=== PATIENT | female | born 1970 | race African-American/Black ===

== ENCOUNTER 2017-03-02 14:20 | Observation (INO) ==
[2017-03-02 16:29] LABS: Basophils % 0.7 % (0.0-0.8); Eosinophils # 0.2 10*3/uL (0.0-0.87); Hematocrit 27.6 VOL% (35.7-47.0); Immature Granulocytes % 0.2 %; Immature Granulocytes Absolute 0.01 #; Lymphocytes # 2.1 10*3/uL (1.4-4.0); Lymphocytes % 34.4 % (21.3-54.2); Mean Corpuscular Hemoglobin 18 PG (27-34); Mean Corpuscular Volume 63.2 FL (87-102); Mean Platelet Volume 10.1 FL (9.6-12.0); Monocytes # 0.3 10*3/uL (0.11-0.8); Monocytes % 5.2 % (1.7-12.7); Neutrophils # 3.4 10*3/uL (1.4-7.4); Neutrophils % 56.5 % (38.7-73.9); Platelet Count 267 T/CUMM (130-400); Red Blood Count 4.37 MC/CUMM (3.8-5.5); Red Cell Distribution Width 22.1 % (9.3-17.3)
[2017-03-02 16:38] LABS: PT Patient Result 10.5 SECS
[2017-03-02 16:53] LABS: Albumin 3.9 G/DL (3.4-5.0); Bilirubin,Total 0.5 MG/DL (0.2-1.0); Calcium 7.3 MG/DL (8.5-10.1); Osmolality,Calculated 269.8 MOS/KG (273-304); Potassium 3.2 MMOL/L (3.5-5.1); Total Protein 8.6 G/DL (6.4-8.3)
[2017-03-02 17:16] LABS: Apearance,Urine CLEAR (Clear); Bilirubin,Urine Negative (Negative); Blood, Urine Negative (Negative); Glucose,Urine (UA) Negative (Negative); Hyaline Casts,Urine 1 /LPF (0-3); Ketones,Urine Negative (Negative); Mucus,Urine Many /LPF (Occasional); Nitrite,Urine Negative (Negative); Protein,Urine Negative; RBC,Urine 3 /HPF (0-4); Squamous Epithelial Cell,Urine Occasional /HPF (0-10); Urine Color Yellow (Yellow); Urine Specific Gravity 1.018 (1.001-1.035); WBC,Urine 1 /HPF (0-6)
[2017-03-02] MEDS ORDERED: SODIUM CHLORIDE 0.9% 1,000 ML IV STA (17:39)
[2017-03-02 17:47] LABS: Barbiturates Screen,Urine Negative (Negative); Benzodiazepines Screen,Urine Negative (Negative); Cannabinoid Screen,Urine Negative (Negative); Opiate Screen,Urine Negative (Negative); Phencyclidine Screen,Urine Negative (Negative)
[2017-03-02] MEDS ORDERED: ESTROGENS(CONJ) 25 MG VIAL IV ONE (19:15)
[2017-03-02] MEDS: SODIUM CHLOR 0.9% KCL 20 MEQ 20 MEQ/1,000 ML BAG IV SCH (23:36)
[2017-03-03] MEDS ORDERED: SODIUM CHLORIDE 0.9% 1,000 ML IV PRN (00:57)
[2017-03-03 03:51] LABS: PT Patient Result 10.3 SECS; Partial Thromboplastin Time 26.5 SECS (0-40)
[2017-03-03] MEDS ORDERED: ESTROGENS(CONJ) 25 MG VIAL IM ONE (08:00)
[2017-03-03 08:12] LABS: Basophils % 0.6 % (0.0-0.8); Eosinophils # 0.3 10*3/uL (0.0-0.87); Eosinophils % 3.7 % (0.00-10.9); Hematocrit 21.6 VOL% (35.7-47.0); Immature Granulocytes % 0.1 %; Immature Granulocytes Absolute 0.01 #; Lymphocytes # 2.7 10*3/uL (1.4-4.0); Lymphocytes % 40.3 % (21.3-54.2); Mean Corpuscular HGB Conc 28.2 GM/DL (32-36); Mean Corpuscular Hemoglobin 18 PG (27-34); Mean Corpuscular Volume 64.5 FL (87-102); Mean Platelet Volume 10.6 FL (9.6-12.0); Monocytes # 0.3 10*3/uL (0.11-0.8); Neutrophils # 3.4 10*3/uL (1.4-7.4); Neutrophils % 50.3 % (38.7-73.9); Platelet Count 233 T/CUMM (130-400); Red Blood Count 3.35 MC/CUMM (3.8-5.5); Red Cell Distribution Width 21.8 % (9.3-17.3); White Blood Count 6.8 T/CUMM (4-12)
[2017-03-03 08:18] LABS: Hemoglobin 6.1 GM/DL (12.0-16.0)
[2017-03-03] MEDS: SODIUM CHLOR 0.9% KCL 20 MEQ 20 MEQ/1,000 ML BAG IV SCH (08:32)
[2017-03-03 08:43] LABS: Alanine Aminotransferase 9 U/L (13-56); Alkaline Phosphatase 32 U/L (45-117); Aspartate Amino Transferase 16 U/L (0-37); Bilirubin,Total < 0.39 MG/DL (0.2-1.0); Blood Urea Nitrogen 6 MG/DL (7-18); Calcium 6.3 MG/DL (8.5-10.1); Glucose 75 MG/DL (74-106); Osmolality,Calculated 275.4 MOS/KG (273-304); Potassium 3.7 MMOL/L (3.5-5.1); Sodium 140 MMOL/L (136-145); Total Protein 6.5 G/DL (6.4-8.3)
[2017-03-03 11:49] LABS: Hypochromasia 2+; Microcytosis 2+; Platelet Estimate Adequate; Polychromasia 1+; Spherocytes Few; Target Cells 1+
[2017-03-03] MEDS: POTASSIUM CHLORIDE 20 MEQ/15 ML UDCUP PO SCH (12:53)
[2017-03-04] MEDS: SODIUM CHLOR 0.9% KCL 20 MEQ 20 MEQ/1,000 ML BAG IV SCH ×3 (04:31→14:29)
[2017-03-04 06:49] LABS: Hematocrit 31.9 VOL% (35.7-47.0)
[2017-03-04 06:51] LABS: Hemoglobin 9.9 GM/DL (12.0-16.0)
[2017-03-04] MEDS: POTASSIUM CHLORIDE 20 MEQ/15 ML UDCUP PO SCH (08:06)
[2017-03-04] MEDS ORDERED: SODIUM CHLORIDE 0.9% 1,000 ML IV PRN (08:30)
[2017-03-04] MEDS ORDERED: ACETAMINOPHEN 325 MG TABLET PO PRN (14:49)
[2017-03-04 15:49] VITALS: BP 148/84
== END 2017-03-04 16:47 | disposition home or self-care (01) ==
LOC: N.EDINP 14:20 → N.ED 14:20 → N.2E 20:50
PROVIDERS: ADMIT Specialist; ATTEND Specialist

== ENCOUNTER 2017-05-03 17:30 | Inpatient (IN) ==
[2017-05-03] MEDS ORDERED: KETOROLAC 30 MG/1 ML VIAL IM STA (18:21)
[2017-05-03] MEDS ORDERED: KETOROLAC 30 MG/1 ML VIAL ONE (18:30)
[2017-05-03 18:55] LABS: Basophils % 0.4 % (0.0-0.8); Eosinophils # 0.4 10*3/uL (0.0-0.87); Eosinophils % 3.8 % (0.00-10.9); Hematocrit 23.1 VOL% (35.7-47.0); Hemoglobin 7.1 GM/DL (12.0-16.0); Immature Granulocytes % 0.3 %; Immature Granulocytes Absolute 0.03 #; Lymphocytes # 2.4 10*3/uL (1.4-4.0); Lymphocytes % 25.3 % (21.3-54.2); Mean Corpuscular HGB Conc 30.7 GM/DL (32-36); Mean Corpuscular Hemoglobin 25 PG (27-34); Mean Corpuscular Volume 82.2 FL (87-102); Mean Platelet Volume 10.6 FL (9.6-12.0); Monocytes # 0.6 10*3/uL (0.11-0.8); Monocytes % 6.7 % (1.7-12.7); NRBC # 0.03 10*3/uL; Neutrophils # 6.1 10*3/uL (1.4-7.4); Neutrophils % 63.5 % (38.7-73.9); Platelet Count 259 T/CUMM (130-400); Red Blood Count 2.81 MC/CUMM (3.8-5.5); Red Cell Distribution Width 22.7 % (9.3-17.3); White Blood Count 9.5 T/CUMM (4-12)
[2017-05-03 19:02] LABS: PT Patient Result 10.4 SECS
[2017-05-03] MEDS ORDERED: ONDANSETRON ODT 4 MG TABLET PO STA (19:02)
[2017-05-03] MEDS ORDERED: ONDANSETRON ODT 4 MG TABLET PO ONE (19:02)
[2017-05-03] MEDS ORDERED: SODIUM CHLORIDE 0.9% 1,000 ML IV PRN (19:21)
[2017-05-03 19:22] LABS: Calcium 8.1 MG/DL (8.5-10.1); Osmolality,Calculated 276.4 MOS/KG (273-304); Potassium 3.9 MMOL/L (3.5-5.1)
[2017-05-03] MEDS ORDERED: ESTROGENS(CONJ) 25 MG VIAL IV ONE (20:13)
[2017-05-03] MEDS ORDERED: IBUPROFEN 600 MG TABLET PO PRN (20:13)
[2017-05-03] MEDS ORDERED: BISACODYL 10 MG SUPP RECTAL PRN (20:13)
[2017-05-03] MEDS ORDERED: ACETAMINOPHEN 325 MG TABLET PO PRN (20:13)
[2017-05-03] MEDS ORDERED: ONDANSETRON 4 MG/2 ML VIAL IV PRN (20:13)
[2017-05-03] MEDS: DOCUSATE SODIUM 100 MG CAPSULE PO SCH (23:44)
[2017-05-04 08:47] LABS: Hematocrit 20.1 VOL% (35.7-47.0)
[2017-05-04 08:58] LABS: Hemoglobin 6.1 GM/DL (12.0-16.0)
[2017-05-04] MEDS ORDERED: SODIUM CHLORIDE 0.9% 1,000 ML IV PRN (09:09)
[2017-05-04] MEDS: DOCUSATE SODIUM 100 MG CAPSULE PO SCH ×2 (09:19→22:17)
[2017-05-05] MEDS: DOCUSATE SODIUM 100 MG CAPSULE PO SCH (08:43)
[2017-05-05 10:45] LABS: Basophils % 0.4 % (0.0-0.8); Eosinophils # 0.4 10*3/uL (0.0-0.87); Eosinophils % 4.2 % (0.00-10.9); Hematocrit 32.4 VOL% (35.7-47.0); Hemoglobin 10.6 GM/DL (12.0-16.0); Immature Granulocytes % 0.2 %; Immature Granulocytes Absolute 0.02 #; Lymphocytes % 23.9 % (21.3-54.2); Mean Corpuscular HGB Conc 32.7 GM/DL (32-36); Mean Corpuscular Hemoglobin 26 PG (27-34); Mean Corpuscular Volume 80.4 FL (87-102); Mean Platelet Volume 10.8 FL (9.6-12.0); Monocytes # 0.5 10*3/uL (0.11-0.8); Monocytes % 6.4 % (1.7-12.7); NRBC # 0.02 10*3/uL; Neutrophils # 5.5 10*3/uL (1.4-7.4); Neutrophils % 64.9 % (38.7-73.9); Platelet Count 235 T/CUMM (130-400); Red Blood Count 4.03 MC/CUMM (3.8-5.5); Red Cell Distribution Width 18.8 % (9.3-17.3); White Blood Count 8.4 T/CUMM (4-12)
[2017-05-05 12:08] VITALS: BP 129/81
[2017-05-05] MEDS ORDERED: INFLUENZA VIRUS VACCINE 0.5 ML SYRINGE IM ONE (13:29)
== END 2017-05-05 15:15 | disposition home or self-care (01) | DRG 761 ==
LOC: N.ED 17:30 → N.2E 19:00 → N.ED 19:34
PROVIDERS: ADMIT Specialist; ATTEND Specialist

== ENCOUNTER 2017-05-15 00:07 | Inpatient (IN) ==
[2017-05-15] MEDS ORDERED: SODIUM CHLORIDE 0.9% 500 ML IV STA (01:02)
[2017-05-15 01:14] LABS: Basophils # 0.1 10*3/uL (0.0-0.2); Basophils % 0.9 % (0.0-0.8); Eosinophils # 0.4 10*3/uL (0.0-0.87); Eosinophils % 3.1 % (0.00-10.9); Hematocrit 29.7 VOL% (35.7-47.0); Hemoglobin 9.4 GM/DL (12.0-16.0); Immature Granulocytes % 0.3 %; Immature Granulocytes Absolute 0.04 #; Lymphocytes % 25.7 % (21.3-54.2); Mean Corpuscular HGB Conc 31.6 GM/DL (32-36); Mean Corpuscular Hemoglobin 27 PG (27-34); Mean Corpuscular Volume 83.7 FL (87-102); Mean Platelet Volume 11.2 FL (9.6-12.0); Monocytes # 0.8 10*3/uL (0.11-0.8); Monocytes % 7.2 % (1.7-12.7); Neutrophils # 7.3 10*3/uL (1.4-7.4); Neutrophils % 62.8 % (38.7-73.9); Platelet Count 289 T/CUMM (130-400); Red Blood Count 3.55 MC/CUMM (3.8-5.5); Red Cell Distribution Width 18.5 % (9.3-17.3); White Blood Count 11.6 T/CUMM (4-12)
[2017-05-15] MEDS ORDERED: ONDANSETRON 4 MG/2 ML VIAL IV STA (01:17)
[2017-05-15 01:18] LABS: PT Patient Result 10.5 SECS
[2017-05-15] MEDS ORDERED: ONDANSETRON 4 MG/2 ML VIAL ONE (01:18)
[2017-05-15 01:31] LABS: Apearance,Urine CLEAR (Clear); Bacteria,Urine Occasional /HPF (Few); Bilirubin,Urine Negative (Negative); Blood, Urine Small mg/dL (Negative); Glucose,Urine (UA) Negative (Negative); Ketones,Urine Negative (Negative); Mucus,Urine Occasional /LPF (Occasional); Nitrite,Urine Negative (Negative); Protein,Urine Negative; RBC,Urine 5 /HPF (0-4); Squamous Epithelial Cell,Urine Occasional /HPF (0-10); Urine Color Yellow (Yellow); Urine Specific Gravity 1.023 (1.001-1.035); Urine Urobilinogen < 2.0 EU/DL (0.2-1.0); WBC,Urine 2 /HPF (0-6)
[2017-05-15 01:41] LABS: Albumin 3.6 G/DL (3.4-5.0); Bilirubin,Total 0.6 MG/DL (0.2-1.0); Calcium 7.8 MG/DL (8.5-10.1); Osmolality,Calculated 278.5 MOS/KG (273-304); Potassium 3.7 MMOL/L (3.5-5.1); Total Protein 7.2 G/DL (6.4-8.3)
[2017-05-15] MEDS ORDERED: BISACODYL 10 MG SUPP RECTAL PRN (03:22)
[2017-05-15] MEDS ORDERED: SODIUM CHLORIDE 0.9% 1,000 ML IV PRN ×2 (03:22→22:03)
[2017-05-15] MEDS ORDERED: ONDANSETRON 4 MG/2 ML VIAL IV PRN (03:22)
[2017-05-15] MEDS ORDERED: MAGNESIUM HYDROXIDE SUSP 30 ML UDCUP PO PRN (03:22)
[2017-05-15] MEDS ORDERED: ACETAMINOPHEN 325 MG TABLET PO PRN (03:22)
[2017-05-15] MEDS ORDERED: ACETAMINOPHEN/CODEINE 300-30 MG TABLET PO PRN (03:56)
[2017-05-15] MEDS: SODIUM CHLORIDE 0.9% 1,000 ML IV SCH (04:26)
[2017-05-15] MEDS: IBUPROFEN 800 MG TABLET PO PRN ×2 (04:38→19:56)
[2017-05-15 07:22] LABS: Basophils # 0.1 10*3/uL (0.0-0.2); Basophils % 0.9 % (0.0-0.8); Eosinophils # 0.3 10*3/uL (0.0-0.87); Eosinophils % 3.5 % (0.00-10.9); Hematocrit 29.6 VOL% (35.7-47.0); Hemoglobin 9.3 GM/DL (12.0-16.0); Immature Granulocytes % 0.3 %; Immature Granulocytes Absolute 0.03 #; Lymphocytes # 2.2 10*3/uL (1.4-4.0); Lymphocytes % 23.1 % (21.3-54.2); Mean Corpuscular HGB Conc 31.4 GM/DL (32-36); Mean Corpuscular Hemoglobin 27 PG (27-34); Mean Corpuscular Volume 84.6 FL (87-102); Mean Platelet Volume 11.1 FL (9.6-12.0); Monocytes # 0.5 10*3/uL (0.11-0.8); Monocytes % 5.8 % (1.7-12.7); Neutrophils # 6.2 10*3/uL (1.4-7.4); Neutrophils % 66.4 % (38.7-73.9); Platelet Count 209 T/CUMM (130-400); Red Cell Distribution Width 18.5 % (9.3-17.3); White Blood Count 9.4 T/CUMM (4-12)
[2017-05-15 07:30] LABS: PT Patient Result 10.8 SECS
[2017-05-15 07:39] LABS: Alanine Aminotransferase < 9 U/L (13-56); Albumin 3.1 G/DL (3.4-5.0); Alkaline Phosphatase 44 U/L (45-117); Aspartate Amino Transferase 14 U/L (0-37); Blood Urea Nitrogen 16 MG/DL (7-18); Calcium 7.3 MG/DL (8.5-10.1); Glucose 177 MG/DL (74-106); Osmolality,Calculated 281.5 MOS/KG (273-304); Potassium 3.4 MMOL/L (3.5-5.1); Sodium 139 MMOL/L (136-145); Total Protein 6.2 G/DL (6.4-8.3)
[2017-05-15] MEDS: DOCUSATE SODIUM 100 MG CAPSULE PO SCH ×2 (09:51→22:34)
[2017-05-15] MEDS: ESTROGENS(CONJ) 25 MG VIAL IV SCH ×2 (12:12→18:52)
[2017-05-15 12:35] LABS: Hematocrit 31.1 VOL% (35.7-47.0); Hemoglobin 10.1 GM/DL (12.0-16.0)
[2017-05-15 19:33] LABS: Free T4 (Free Thyroxine) 1.02 NG/DL (0.76-1.46); T4 (Thyroxine) 11.1 UG/DL (4.7-13.3)
[2017-05-15] MEDS ORDERED: ALBUTEROL 2.5 MG/3 ML NEB RESP TX ONE (21:44)
[2017-05-15] MEDS ORDERED: ALBUTEROL 2.5 MG/3 ML NEB RESP TX PRN (21:44)
[2017-05-16] MEDS: SODIUM CHLORIDE 0.9% 1,000 ML IV SCH (00:05)
[2017-05-16] MEDS: MORPHINE 2 MG/1 ML SYRINGE IV PRN ×2 (00:06→20:19)
[2017-05-16] MEDS ORDERED: DIAZEPAM 5 MG TABLET PO ONE (05:29)
[2017-05-16] MEDS ORDERED: FAMOTIDINE 20 MG TABLET PO ONE (05:29)
[2017-05-16] MEDS ORDERED: LACTATED RINGERS 1,000 ML IV SCH ×2 (08:30→13:51)
[2017-05-16] MEDS ORDERED: MICROFIBRILLAR COLLAGEN POWDER 1 GM CAN TOP ONE (09:29)
[2017-05-16] MEDS ORDERED: ceFAZolin 1,000 MG VIAL ONE (10:05)
[2017-05-16] MEDS ORDERED: fentaNYL 100 MCG/2 ML VIAL ONE (10:13)
[2017-05-16] MEDS ORDERED: MIDAZOLAM 2 MG/2 ML VIAL ONE (10:13)
[2017-05-16] MEDS ORDERED: RACEPINEPHRINE 0.5 ML NEB RESP TX ONE ×4 (11:28→12:38)
[2017-05-16] MEDS: DOCUSATE SODIUM 100 MG CAPSULE PO SCH (11:34)
[2017-05-16 11:41] LABS: Apearance,Urine CLEAR (Clear); Bacteria,Urine Occasional /HPF (Few); Bilirubin,Urine Negative (Negative); Blood, Urine Small mg/dL (Negative); Glucose,Urine (UA) Negative (Negative); Ketones,Urine Negative (Negative); Nitrite,Urine Negative (Negative); Protein,Urine Negative; Squamous Epithelial Cell,Urine Occasional /HPF (0-10); Urine Color Colorless (Yellow); Urine Specific Gravity 1.003 (1.001-1.035); Urine Urobilinogen < 2.0 EU/DL (0.2-1.0); WBC,Urine <1 /HPF (0-6)
[2017-05-16] MEDS ORDERED: SEVOFLURANE 1 UNIT/15 MINUTE INH ONE (11:43)
[2017-05-16] MEDS ORDERED: ONDANSETRON 4 MG/2 ML VIAL ONE ×2 (11:43→11:44)
[2017-05-16] MEDS ORDERED: GLYCOPYRROLATE 0.4 MG/2 ML VIAL ONE (11:43)
[2017-05-16] MEDS ORDERED: PROPOFOL 200 MG/20 ML VIAL IV ONE (11:43)
[2017-05-16] MEDS ORDERED: ACETAMINOPHEN 1,000 MG/100 ML VIAL IV ONE (11:43)
[2017-05-16] MEDS ORDERED: KETOROLAC 30 MG/1 ML VIAL ONE (11:43)
[2017-05-16] MEDS ORDERED: LACTATED RINGERS 1,000 ML IV ONE (11:44)
[2017-05-16] MEDS ORDERED: ROCURONIUM 100 MG/10 ML VIAL IV ONE (11:44)
[2017-05-16] MEDS ORDERED: NEOSTIGMINE 10 MG/10 ML VIAL ONE (11:44)
[2017-05-16] MEDS ORDERED: MORPHINE 10 MG/1 ML VIAL ONE ×2 (11:44→12:51)
[2017-05-16] MEDS ORDERED: PHENYLEPHRINE 1 MG/10 ML SYRINGE IV ONE (11:44)
[2017-05-16] MEDS: MORPHINE 10 MG/1 ML VIAL IV PRN ×7 (11:50→15:25)
[2017-05-16] MEDS ORDERED: ONDANSETRON 4 MG/2 ML VIAL IV PRN ×2 (11:51→13:51)
[2017-05-16] MEDS ORDERED: DEXAMETHASONE 4 MG/1 ML VIAL ONE (11:58)
[2017-05-16] MEDS ORDERED: DEXAMETHASONE 4 MG/1 ML VIAL IV ONE (12:37)
[2017-05-16] MEDS ORDERED: ACETAMINOPHEN 325 MG TABLET PO PRN (13:51)
[2017-05-16] MEDS ORDERED: BENZOCAINE/MENTHOL LOZENGE 18/BOX PO PRN (13:51)
[2017-05-16] MEDS ORDERED: BISACODYL 10 MG SUPP RECTAL PRN (13:51)
[2017-05-16] MEDS: ceFAZolin 1,000 MG in SYRINGE 1 EACH IV SCH (17:00)
[2017-05-16 18:09] LABS: Basophils % 0.1 % (0.0-0.8); Hemoglobin 9.1 GM/DL (12.0-16.0); Immature Granulocytes % 0.6 %; Immature Granulocytes Absolute 0.11 #; Lymphocytes # 0.6 10*3/uL (1.4-4.0); Lymphocytes % 3.5 % (21.3-54.2); Mean Corpuscular HGB Conc 32.5 GM/DL (32-36); Mean Corpuscular Hemoglobin 28 PG (27-34); Mean Corpuscular Volume 85.6 FL (87-102); Mean Platelet Volume 11.3 FL (9.6-12.0); Monocytes # 0.7 10*3/uL (0.11-0.8); Neutrophils # 15.8 10*3/uL (1.4-7.4); Neutrophils % 91.8 % (38.7-73.9); Platelet Count 189 T/CUMM (130-400); Red Blood Count 3.27 MC/CUMM (3.8-5.5); Red Cell Distribution Width 17.7 % (9.3-17.3); White Blood Count 17.2 T/CUMM (4-12)
[2017-05-16 19:50] LABS: Basophilic Stippling Few; Hypochromasia 1+; Lymphocytes 1 % (20-55); Platelet Estimate Adequate; Polychromasia Few; Segmented Neutrophils 97 % (50-85); Total Cells Counted 100
[2017-05-16 19:51] LABS: Target Cells Few
[2017-05-16] MEDS: DOCUSATE SODIUM 100 MG CAPSULE PO PRN (21:01)
[2017-05-17] MEDS: IBUPROFEN 800 MG TABLET PO PRN (01:24)
[2017-05-17] MEDS: MORPHINE 2 MG/1 ML SYRINGE IV PRN (01:25)
[2017-05-17] MEDS: ceFAZolin 1,000 MG in SYRINGE 1 EACH IV SCH (01:26)
[2017-05-17 06:34] LABS: Basophils % 0.1 % (0.0-0.8); Hematocrit 26.2 VOL% (35.7-47.0); Hemoglobin 8.3 GM/DL (12.0-16.0); Immature Granulocytes % 0.6 %; Lymphocytes # 1.2 10*3/uL (1.4-4.0); Lymphocytes % 6.7 % (21.3-54.2); Mean Corpuscular HGB Conc 31.7 GM/DL (32-36); Mean Corpuscular Hemoglobin 27 PG (27-34); Mean Corpuscular Volume 85.6 FL (87-102); Mean Platelet Volume 11.1 FL (9.6-12.0); Monocytes # 0.9 10*3/uL (0.11-0.8); Monocytes % 5.3 % (1.7-12.7); Neutrophils # 15.4 10*3/uL (1.4-7.4); Neutrophils % 87.3 % (38.7-73.9); Platelet Count 187 T/CUMM (130-400); Red Blood Count 3.06 MC/CUMM (3.8-5.5); Red Cell Distribution Width 17.8 % (9.3-17.3); White Blood Count 17.7 T/CUMM (4-12)
[2017-05-17] MEDS: hydroCHLOROthiazide 25 MG TABLET PO SCH (08:59)
[2017-05-17] MEDS: LEVOTHYROXINE 25 MCG TABLET PO SCH (09:00)
[2017-05-17] MEDS: SIMETHICONE CHEW 80 MG TABLET PO PRN (20:04)
[2017-05-17] MEDS: FERROUS SULFATE 325 MG TABLET PO SCH (20:04)
[2017-05-17] MEDS: DOCUSATE SODIUM 100 MG CAPSULE PO PRN (20:04)
[2017-05-17] MEDS: MAGNESIUM HYDROXIDE SUSP 30 ML UDCUP PO PRN (20:04)
[2017-05-18] MEDS: SIMETHICONE CHEW 80 MG TABLET PO PRN (01:17)
[2017-05-18] MEDS: LEVOTHYROXINE 25 MCG TABLET PO SCH (05:57)
[2017-05-18] MEDS: hydroCHLOROthiazide 25 MG TABLET PO SCH (08:52)
[2017-05-18] MEDS: DOCUSATE SODIUM 100 MG CAPSULE PO PRN (08:52)
[2017-05-18] MEDS: IBUPROFEN 800 MG TABLET PO PRN (08:53)
[2017-05-18] MEDS: FERROUS SULFATE 325 MG TABLET PO SCH (08:54)
[2017-05-18] MEDS: MAGNESIUM HYDROXIDE SUSP 30 ML UDCUP PO PRN (08:58)
[2017-05-18 09:18] VITALS: BP 126/74
== END 2017-05-18 14:40 | disposition home or self-care (01) | DRG 743 ==
LOC: N.ED 00:07 → N.EDINP 01:48 → N.OB 02:44
PROVIDERS: ADMIT Obstetrics & Gynecology; ATTEND Obstetrics & Gynecology